=== PATIENT | female | born 1945 | race Caucasian/White ===

== ENCOUNTER → 2017-04-12 | Outpatient (CLI) | payer MEDICARE, BC ==
--- NOTE | 2017-04-13 07:25 | RADIOLOGY REPORT PS360 ---
EXAM: CT LUNG LOW DOSE WO CONTRAST COMPARISON: None HISTORY: 72-year-old asymptomatic female greater than 30 pack-year smoking history ORDERING PHYSICIAN: Oleksandr Bell MD PATIENT AGE: 72 years TECHNIQUE: The exam was performed on a GE Light Speed [address] scanner using 2.95 mGy CTDI. A low dose helical CT CHEST was performed on a multi-detector scanner The LDCT was performed in a facility that meets the criteria for the screening program. Data regarding this exam was submitted to [employer] which is an approved registry. The order for this exam indicates that it came as a result of a lung cancer screening counseling shard decision-making visit that included all the elements required of such a visit including smoking cessation. The radiologist interpreting this exam meets the [facility] criteria for the LDCT lung cancer screening program. The exam is reported using the Lung-RADS classification scale and reported to the [employer]CR registry. NOTE: THIS STUDY WAS PERFORMED FOR THE SPECIFIC PURPOSES OF LUNG CANCER SCREENING AND IS NOT AN ALTERNATIVE TO DIAGNOSTIC CHEST CT. RADIATION DOSE: CTDI vol(CT dose Index-volume) = 2.95mG DLP (Dose Length Product) = 110.41 mGcm FINDINGS: There are centrilobular emphysematous changes. 3 mm noncalcified nodule right apex. 6 mm noncalcified nodule right perihilar region versus overlapping vessel. 3 mm noncalcified nodule left upper lobe anterolaterally. There are atelectatic or fibrotic changes in the lung bases. Moderate to severe coronary artery calcifications are present. Upper abdominal images show decreased density in the right hepatic lobe medially possibly related to partial volume averaging artifact. Cannot exclude a liver lesion. Further evaluation could be performed with dedicated CT of the abdomen. Clinically warranted the most inferior image shows soft tissue density in the mid abdomen anterior and to the left of the aorta. This may be related to unopacified bowel however, one cannot exclude soft tissue mass. This measures approximately 4.6 x 3.2 cm. IMPRESSION: 1. Lung RADS Category: 3, probably benign 2. Other findings: Coronary artery disease. Centrilobular emphysema. Nonspecific findings of the upper abdomen with possible liver lesion and retroperitoneal mass. Dedicated CT abdomen without and with contrast and with oral contrast may be of further value RECOMMENDATIONS: 6 monthd LDCT follow-up of the lungs CT abdomen without and with contrast
== END ==
LOC: RAD 14:15
DX: Z87.891 Personal history of nicotine dependence (principal)
CPT/HCPCS: G0297

== ENCOUNTER → 2017-04-21 | Outpatient (CLI) | payer MEDICARE, BC ==
[2017-04-21 10:50] LABS: BUN 12 mg/dL (7-18)
[2017-04-21 10:54] LABS: GFR (ESTIMATED) 71 ML/MIN (59-)
--- NOTE | 2017-04-25 06:44 | RADIOLOGY REPORT PS360 ---
CT ABD W/WO CONTRAST CLINICAL INDICATION: Follow-up liver lesion LIVER LESION ORDERING PHYSICIAN: Oleksandr Bell MD PATIENT AGE: 72 years COMPARISON: 04 12 17 TECHNIQUE: Pre and post enhanced images obtained of the abdomen with 5 minute delayed post enhanced images. FINDINGS: There is a 13 mm isodense lesion within the posterior segment right hepatic lobe medially. This contains a small focus of calcification posteriorly.. There is minimal lobularity along the posterior aspect of this nodule. This does not enhance as one would expect for a hemangioma. No other liver lesions are evident. There is some increased density along posterior aspect of the gallbladder suggesting cholelithiasis. The spleen and adrenal glands are unremarkable. There is a 2.4 cm isodense lesion projecting off the posterior aspect of the body of the pancreas. The previously noted soft tissue density inferior to the pancreas represents small bowel. There is cortical scarring of the right kidney with a 1.5 cm cyst projecting off the posterior aspect of the right kidney. Left kidney has an unremarkable appearance. No acute bony anomalies. IMPRESSION: 1. Indeterminate 13 mm liver lesion involving the posterior segment right hepatic lobe. This does not appear to represent a hemangioma. Consider ultrasound to determine cystic or solid nature 2. Suspect cholelithiasis with be confirmed with ultrasound. 3. Isodense lesion projects off the posterior aspect of the body of the pancreas measuring 2.4 cm. Recommend ultrasound to determine cystic or solid nature.
== END ==
LOC: RAD 10:12
PROVIDERS: Family Medicine
DX: K76.9 Liver disease, unspecified (principal)
CPT/HCPCS: Q9967